=== PATIENT | female | born 1985 | race Caucasian/White ===

== ENCOUNTER 2016-10-05 14:52 | Emergency (ER) | payer OTHER ==
[~2016-10-05] VITALS: Ht 162.6 cm; Wt 131.5 kg
[2016-10-05] MEDS ORDERED: IV NORMAL SALINE 1000ML BAG 1,000 ML IV SCH (15:50)
[2016-10-05 15:57] LABS: BILIRUBIN,URINE NEGATIVE (NEG); GLUCOSE,URINE NEGATIVE (NEG); NITRITE,URINE POSITIVE (NEG); PH,URINE 6.5; PROTEIN,URINE NEGATIVE (NEG-TRACE); UROBILINOGEN,URINE 0.2 mg/dL (0.2 mg/dL)
--- NOTE | 2016-10-05 16:03 | ED.ADGEN ---
Past Medical History Past Medical History: Asthma, Kidney Infection, Kidney Stone, Other Additional Past Medical Histor: ureter blockage Past Surgical History: Knee Replacement, Tonsillectomy Additional Past Surgical Histo: LEEP, Alcohol Use: None Drug Use: None Adult General Chief Complaint Chief Complaint: FLANK PAIN HPI HPI Patient is a 31 year old female with a history of frequent UTIs and previous pyelonephritis and kidney stones presents emergency department complaining of dysuria for the last 5 days. She reports her last 48 hours she has not really begun to feel unwell. She reports subjective fevers as well as nausea. She has had no emani emesis but definitely has had decreased by mouth. Review of Systems Review of Systems Constitutional: Denies fever or chills. [] Eyes: Denies change in visual acuity. [] HENT: Denies nasal congestion or sore throat. [] Respiratory: Denies cough or shortness of breath. [] Cardiovascular: Denies chest pain or edema. [] GI: Denies abdominal pain, nausea, vomiting, bloody stools or diarrhea. [] : Denies dysuria. [] Musculoskeletal: Denies back pain or joint pain. [] Integument: Denies rash. [] Neurologic: Denies headache, focal weakness or sensory changes. [] Endocrine: Denies polyuria or polydipsia. [] Lymphatic: Denies swollen glands. [] Psychiatric: Denies depression or anxiety. [] Current Medications Current Medications Current Medications Medications (Trade) Dose Ordered Sig/Edna Start Time Stop Time Status Last Admin Dose Admin Ceftriaxone Sodium (Rocephin 1gm Ivpb For Omni) 50 ml @ 100 mls/hr 1X ONCE 10/05/16 17:00 10/05/16 17:29 Fentanyl Citrate 75 mcg 75 mcg 1X ONCE 10/05/16 16:30 10/05/16 16:31 10/05/16 16:11 75 MCG Ondansetron HCl 4 mg 4 mg 1X ONCE 10/05/16 16:30 10/05/16 16:31 10/05/16 16:11 4 MG Sodium Chloride (Iv Sodium Chloride 0.9% 1000ml Bag) 1,000 ml @ 1,000 mls/hr Q1H 10/05/16 15:50 10/05/16 16:49 10/05/16 16:12 1,000 MLS/HR Allergies Allergies Allergies Coded Allergies Type Severity Reaction Last Updated Verified Sulfa (Sulfonamide Antibiotics) Allergy Intermediate hives 10/05/16 Yes morphine Allergy Intermediate 10/05/16 Yes sulfamethoxazole Allergy Intermediate hives 10/05/16 Yes trimethoprim Allergy Intermediate hives 10/05/16 Yes Physical Exam Physical Exam Constitutional: Well developed, well nourished, no acute distress, non-toxic appearance. [] HENT: Normocephalic, atraumatic, bilateral external ears normal, oropharynx moist, no oral exudates, nose normal. [] Eyes: PERRLA, EOMI, conjunctiva normal, no discharge. [] Neck: Normal range of motion, no tenderness, supple, no stridor. [] Cardiovascular:Heart rate regular rhythm, no murmur [] Lungs & Thorax: Bilateral breath sounds clear to auscultation [] Abdomen: Bowel sounds normal, soft, diffuse suprapubic tenderness to palpation without peritoneal signs, no masses, no pulsatile masses. [] Skin: Warm, dry, no erythema, no rash. [] Back: No tenderness, bilateral CVA tenderness. [] Extremities: No tenderness, no cyanosis, no clubbing, ROM intact, no edema. [] Neurologic: Alert and oriented X 3, normal motor function, normal sensory function, no focal deficits noted. [] Psychologic: Affect normal, judgement normal, mood normal. [] Current Patient Data Vital Signs Vital Signs Date Time Temp Pulse Resp B/P Pulse Ox O2 Delivery O2 Flow Rate FiO2 10/05/16 16:11 Room Air 10/05/16 15:00 98.4 83 7 133/53 96 98.4 Lab Values Laboratory Tests Test 10/05/16 15:00 Urine Collection Type Unknown Urine Color Yellow Urine Clarity Clear Urine pH 6.5 Urine Specific [place] 1.025 Urine Protein Negativemg/dL (NEG-TRACE) Urine Glucose (UA) Negativemg/dL (NEG) Urine Ketones (Stick) Negativemg/dL (NEG) Urine Blood Small (NEG) Urine Nitrite Positive (NEG) Urine Bilirubin Negative (NEG) Urine Urobilinogen Dipstick 0.2mg/dL (0.2 mg/dL) Urine Leukocyte Esterase Moderate (NEG) Urine RBC Occ/HPF (0-2) Urine WBC 11-20/HPF (0-4) Urine Squamous Epithelial Cells Mod/LPF Urine Bacteria Many/HPF (0-FEW) Urine Mucus Slight/LPF EKG EKG [] Radiology/Procedures Radiology/Procedures [] Course & Med Decision Making Course & Med Decision Making Pertinent Labs and Imaging studies reviewed. (See chart for details) IV fluids, Zofran, fentanyl, and rocephin given in the ED. She is being sent home with prescription for Cipro, Zofran, and [place]. She was given supportive care and follow-up instructions. [] Dragon Disclaimer Dragon Disclaimer This electronic medical record was generated, in whole or in part, using a voice recognition dictation system. QUENTIN LUA MD Oct 05, 2016 16:02
[2016-10-05 16:10] LABS: BACTERIA,URINE MANY /HPF (0-FEW); RBC,URINE OCC /HPF (0-2); SQUAMOUS EPITHELIAL CELL,UR MOD /LPF
[2016-10-05] MEDS ORDERED: ONDA4TAB10 SL (16:21)
[2016-10-05] MEDS ORDERED: CIPR500T94 PO (16:21)
[2016-10-05] MEDS ORDERED: HYDR-971 PO (16:21)
[2016-10-05] MEDS ORDERED: ONDANSETRON PF 4 MG/2 ML VIAL. IV ONE (16:30)
[2016-10-05] MEDS ORDERED: FENTANYL PF 100 MCG/2 ML VIAL. IV ONE (16:30)
[2016-10-05] MEDS ORDERED: CEFTRIAXONE 1GM IVPB FOR OMNI 50 ML IV ONE (17:00)
[2016-10-05 17:03] VITALS: BP 126/52
--- NOTE | 2016-10-07 15:32 | VNOTE ---
CALL BACK NOTE CALL BACK Microbiology 10/05/16 Urine Culture - Final, Complete 10/05/16 Urine Culture Result 1 (CHRISTIAN) - Final, Complete 10/05/16 Antimicrobic Susceptibility - Final, Complete Attempted to contact patient regards to her urine culture was positive for Escherichia coli. She was placed on Cipro at discharge according to the culture and sensitivity there is resistance with this antibiotic. Message was left for patient to return our call as there was no answer. Number provided from registration was the front number in which I attempted to contact the patient. SARAH ARREOLA APRN Oct 07, 2016 15:32
--- NOTE | 2016-10-07 15:42 | VNOTE ---
CALL BACK NOTE CALL BACK Microbiology 10/05/16 Urine Culture - Final, Complete 10/05/16 Urine Culture Result 1 (CHRISTIAN) - Final, Complete 10/05/16 Antimicrobic Susceptibility - Final, Complete Patient had return call. Aaron called in for the patient at [facility] and [facility] in [facility] SARAH ARREOLA APRN Oct 07, 2016 15:42
== END 2016-10-05 17:18 | disposition home or self-care (01) ==
LOC: ER 14:52
DX: R30.0 Dysuria (principal); J45.909 Unspecified asthma, uncomplicated; Z88.1 Allergy status to other antibiotic agents; Z88.5 Allergy status to narcotic agent; Z88.2 Allergy status to sulfonamides
CPT/HCPCS: 81001; 81025; 87086; 96365; 96375; 99284; J0690; J2405; J3010; J7030